=== PATIENT | female | born 1980 | race Caucasian/White ===

== ENCOUNTER → 2016-08-23 | Outpatient (CLI) | payer BC ==
[~2016-08-23] MED LIST: ALEN70TA4 PO; ATV/1 PO; CHOL100010 PO; COEN200C4 PO; METO25TA3 PO; OYST500T47 PO
--- NOTE | 2016-08-23 10:12 | DIAGNOSTIC IMAGING REPORT ---
ULTRASOUND RIGHT UPPER QUADRANT ABDOMEN CLINICAL HISTORY: Right upper quadrant abdominal pain. COMPARISON STUDY: Abdominal ultrasound dated 05/17/2008. TECHNIQUE: Real-time, grayscale, and color flow sonography of the right upper quadrant of the abdomen was performed. Images are reviewed in the transverse and longitudinal planes. FINDINGS: Liver: The liver is normal in size and echotexture. There is no intrahepatic biliary ductal dilatation. The main portal vein is patent. Gallbladder: The gallbladder is normal in appearance. No gallstones are identified. There is no gallbladder wall thickening or pericholecystic fluid. A sonographic Thomas's sign is reportedly absent. The common bile duct measures up to 0.3 cm in diameter. Pancreas: Visualized portions of the pancreatic head and body are normal in appearance. The splenic vein is patent. Right kidney: Survey images of the right kidney demonstrate normal size and echotexture. There is no hydronephrosis. Ascites: None. IMPRESSION: Unremarkable sonographic assessment of the right upper quadrant. No gallstones are identified. Electronically signed by: Mane Montes M.D. 08/23/2016 10:10 AM Dictated Date/Time: 08/23/2016 10:05 AM
== END | disposition home or self-care (01) ==
LOC: C.ULTR 09:18
PROVIDERS: ATTEND Internal Medicine
DX: R10.811 Right upper quadrant abdominal tenderness (principal)

== ENCOUNTER → 2016-09-27 | Outpatient (CLI) | payer BC ==
[~2016-09-27] MED LIST changes: +SINCALIDE INJ 1.45 MCG in SODIUM CHLORIDE 0.9% 100ML 100 ML IV ONE
--- NOTE | 2016-09-27 15:20 | DIAGNOSTIC IMAGING REPORT ---
NUCLEAR MEDICINE HEPATOBILIARY SCAN WITH EJECTION FRACTION HISTORY: R10.811 Right upper quadrant abdominal tenderness without reboun COMPARISON: Abdominal ultrasound 08/23/2016. TECHNIQUE: Immediately following the intravenous administration of 5.8 mCi Tc-99m Choletec, dynamic anterior abdominal imaging pre/post 1.45 mcg of Kinevac was performed. FINDINGS: Uniform hepatic tracer accumulation is shown. Prompt intrahepatic biliary excretion is seen. The gallbladder, common bile duct, and small bowel are all visualized by 25 minutes. This appearance represents the normal sequence of biliary excretion. The gall bladder ejection fraction following administration of Kinevac was 96% (normal >35%). IMPRESSION: 1. No evidence for cystic duct obstruction. 2. Gallbladder ejection fraction calculated to be 96 %. Electronically signed by: Vj Guerrero M.D. 09/27/2016 3:19 PM Dictated Date/Time: 09/27/2016 3:18 PM
== END | disposition home or self-care (01) ==
LOC: C.NUCL 12:26
PROVIDERS: ATTEND Internal Medicine
DX: R10.811 Right upper quadrant abdominal tenderness (principal)

== ENCOUNTER → 2017-01-22 | Outpatient (CLI) | payer BC ==
[~2017-01-22] MED LIST changes: -SINCALIDE INJ 1.45 MCG in SODIUM CHLORIDE 0.9% 100ML 100 ML IV ONE
== END | disposition home or self-care (01) ==
LOC: C.LABSPEC 17:06
PROVIDERS: ATTEND Podiatrist Primary Podiatric Medicine
DX: B35.1 Tinea unguium (principal)